=== PATIENT | male | born 1985 | race Caucasian/White ===

== ENCOUNTER 2017-03-01 03:52 | Emergency (ER) | payer OTHER ==
[~2017-03-01] VITALS: Ht 170.2 cm; Wt 61.9 kg
[~2017-03-01 03:52] MED LIST: FLEET ENEMA-AD118 ML PR; MILK OF MAGN PO; MOTRIN800 MG PO; NAPROXEN500 MG PO; NOHOMEMEDS; PREDNISONE20 MG PO; TRAMADOL HCL50 MG PO; VALIUM2 MG PO; VALIUM5 MG PO
[2017-03-01 04:25] VITALS: BP 125/97
[2017-03-01] MEDS ORDERED: MEDROL DOSEPAK4 MG PO (21:25)
[2017-03-01] MEDS ORDERED: FLONASE16 G1 BOTH NARES (21:25)
[2017-03-01] MEDS ORDERED: ALLEGRA-D 121 TABLET PO (21:25)
== END 2017-03-01 04:26 | disposition home or self-care (01) ==
LOC: EME 03:52
DX: J02.9 Acute pharyngitis, unspecified (principal); F17.200 Nicotine dependence, unspecified, uncomplicated
CPT/HCPCS: 99281; 99284

== ENCOUNTER 2017-03-01 20:18 | Emergency (ER) | payer OTHER ==
[~2017-03-01] VITALS: Ht 170.2 cm; Wt 61.7 kg
[2017-03-01 20:22] VITALS: BP 146/100
[2017-03-01] MEDS ORDERED: FLONASE16 G1 BOTH NARES (21:25)
[2017-03-01] MEDS ORDERED: ALLEGRA-D 121 TABLET PO (21:25)
[2017-03-01] MEDS ORDERED: MEDROL DOSEPAK4 MG PO (21:25)
== END 2017-03-01 22:06 | disposition home or self-care (01) ==
LOC: EME 20:18
DX: J32.9 Chronic sinusitis, unspecified (principal); K12.2 Cellulitis and abscess of mouth; Z72.0 Tobacco use
CPT/HCPCS: 99281; 99284; J7512